=== PATIENT | male | born 1950 | race Caucasian/White ===

== ENCOUNTER 2018-03-05 06:00 | Day surgery (SDC) | payer OTHER ==
[2018-02-17 12:00] VITALS: BMI 33.5
[2018-03-05] MEDS ORDERED: PROPOFOL 20 ML ONE (07:13)
[2018-03-05] MEDS ORDERED: fentaNYL CITRATE 250 MCG/5 ML VIAL ONE (07:13)
[2018-03-05] MEDS ORDERED: DEXAMETHASONE SOD PHOSPHATE 4 MG/1 ML VIAL ONE (07:14)
[2018-03-05] MEDS ORDERED: MIDAZOLAM HCL 2 MG/2 ML SINGLE DOSE VIAL ONE (07:14)
[2018-03-05] MEDS ORDERED: ONDANSETRON 4 MG/2 ML VIAL ONE (07:14)
[2018-03-05] MEDS ORDERED: SUCCINYLCHOLINE CHLORIDE 200 MG/10 ML VIAL ONE (07:14)
[2018-03-05] MEDS ORDERED: LIDOCAINE HCL/PF 2% SDV 5ML VIAL ONE (07:14)
[2018-03-05] MEDS ORDERED: ROCURONIUM BROMIDE 50 MG/5 ML VIAL ONE (07:14)
--- NOTE | 2018-03-05 07:33 | HP ---
History & Physical Update - History History: No Change - Physical Physical: No Change - Assessment Assessment: No Change - Plan Plan: No Change (mexican intrepreter # [id number])
[2018-03-05] MEDS ORDERED: ceFAZolin SODIUM 1 GM VIAL ONE (08:22)
[2018-03-05] MEDS ORDERED: METOPROLOL TARTRATE 5 MG/5 ML VIAL ONE (08:25)
[2018-03-05] MEDS ORDERED: ASPIRIN 81 MG CHEWABLE TABLETS PO ONE (08:30)
[2018-03-05] MEDS ORDERED: GLYCOPYRROLATE 0.2 MG/1 ML VIAL ONE (09:37)
[2018-03-05] MEDS ORDERED: NEOSTIGMINE METHYLSULFATE 0.5 MG/ML - 10 ML MDV ONE (09:37)
--- NOTE | 2018-03-05 10:12 | OP ---
Operative Note - Note: Operative Date: 03/05/18 Pre-Operative Diagnosis: cholelithiasis Operation: s/p laparoscopic cholecystecotmy with intraoperative cholangiogram Surgeon: Ty Herrera Inspector Balance Bridge: Maribell Small Anesthesiologist/SQUARE CUTTER: Emilia Morales Anesthesia: General Estimated Blood Loss (mls): 20 Fluid Volume Replaced (mls): 900 Operative Report Dictated: Yes
[2018-03-05] MEDS ORDERED: ONDANSETRON 4 MG/2 ML VIAL IVPUSH PRN (10:24)
[2018-03-05] MEDS ORDERED: oxyCODONE HCL 5 MG TABLET PO PRN ×2 (10:24)
[2018-03-05] MEDS ORDERED: LACTATED RINGERS SOLUTION 1,000 ML IV SCH (10:30)
--- NOTE | 2018-03-05 11:07 | OP ---
DATE OF OPERATION: 03/05/2018 SURGICAL ATTENDING: Katelyn Turner MD GAMMA FACILITIES OPERATOR: DESIREE Darby PREOPERATIVE DIAGNOSIS: Cholecystitis. POSTOPERATIVE DIAGNOSIS: Cholecystitis. ANESTHESIA: General endotracheal. PROCEDURE: Laparoscopic cholecystectomy with intraoperative cholangiogram and incarcerated umbilical hernia repair without mesh. DESCRIPTION OF PROCEDURE: The patient was taken into the operating room, placed in a supine position, endotracheally intubated, prepped and draped in the usual sterile fashion. A vertical incision was made 2 cm in length above the umbilicus carried down through subcutaneous tissues. An umbilical hernia was identified. The fascia and peritoneum were opened. The sac contents were excised and sent to Pathology. The fascia was then sutured bilaterally. A Stephani catheter was then placed into the peritoneal cavity, and the fascial sutures were placed to secure the trocar. The abdomen was insufflated with CO2 to 15 mmHg, and the laparoscope was placed showing good placement of the trocar with no intraabdominal organ damage. A midepigastric and 2 right lateral incisions were made, and 5-mm trocars were placed in these 3 locations. The gallbladder was exposed, retracted superiorly, anteriorly, and laterally. Dissection began, and the cystic duct and cystic artery were dissected from surrounding tissues. The cystic artery was doubly clipped and cut. The cystic duct was isolated. A clip was placed superiorly on the gallbladder side, and a ductotomy was made. Bile was seen to flow from the duct. A cholangiocatheter was then placed, the balloon inflated, and saline was injected without difficulty. Cholangiography was then performed with fluoroscopy. The common bile duct and the bile filled easily with no defects seen. At first, there was no retrograde flow of dye. However, on pulling back the catheter, there was flow into the common hepatic duct. The catheter was removed. Two clips were placed inferior to the ductotomy, and the cystic duct was transected. The attachments of the gallbladder to the liver were then incised with a hook with no spillage of bile or stones. The gallbladder was then placed into an EndoCatch bag and removed through the supraumbilical port. Hemostasis was achieved with electrocautery. The right upper quadrant was then irrigated and suctioned and seemed to be dry and hemostatic. The three 5-mm ports were removed under direct vision. The umbilical report was removed. The umbilical hernia fascial defect was then closed with interrupted 0 Vicryl sutures. Subcutaneous Vicryl sutures were placed, and all skin incisions were closed with Monocryl and dressed with Dermabond. The patient was then awakened, extubated, and taken to recovery in stable condition. Dr. Turner, the attending surgeon, was present throughout the entire procedure. KATELYN TURNER M.D. [id number]
--- NOTE | 2018-03-05 12:27 | SURG ---
Surgery Summer Babysitter Note Summer Babysitter: Maribell Small PA-C Date of Service: 03/05/18 Diagnosis: cholelithiasis Procedure: laparoscopic choleycystecotmy, intra-operative cholangiogram with umbilical hernia repair I was present for the entirety of the operative procedure. For further detail, please refer to operative report. Visit type - Case Type Case Type: Scheduled - Emergency Emergency Visit: No - New patient This patient is new to me today: Yes Date on this admission: 03/05/18
[2018-03-05 12:59] VITALS: PULSE 64; TEMP 98
[2018-03-05 15:34] VITALS: BP 133/69
--- NOTE | 2018-03-05 15:51 | EKG ---
Test Reason : Blood Pressure : / mmHG Vent. Rate : 070 BPM Atrial Rate : 070 BPM P-R Int : 184 ms QRS Dur : 080 ms QT Int : 402 ms P-R-T Axes : 041 010 005 degrees QTc Int : 434 ms NORMAL SINUS RHYTHM NORMAL ECG NO PREVIOUS ECGS AVAILABLE Confirmed by FRANK BRUNO, ERIC ([id number]) on 03/05/2018 3:51:12 PM Referred By: Confirmed By:ERIC MARIE MD
--- NOTE | 2018-03-09 16:56 | PATH ---
Surgical Pathology Report Patient Name: TRISH SOARES [facility]. Rec. #: [id number] /Age/Gender: 1950 (Age: 67) / M Account: [id number] Location: [facility] AMBULATORY Taken: 03/05/2018 Received: 03/05/2018 Reported: 03/09/2018 Physicians: Ty Herrera M.D. Specimen(s) Received A: UMBILICAL HERNIA SAC B: GALLBLADDER Clinical History Calculus of gallbladder without cholecystitis Final Diagnosis A. UMBILICAL HERNIA SAC, HERNIA REPAIR: FIBROMEMBRANOUS AND FIBROADIPOSE TISSUE COMPATIBLE WITH HERNIA SAC. B. GALLBLADDER, LAPAROSCOPIC CHOLECYSTECTOMY: CHRONIC CHOLECYSTITIS WITH CHOLELITHIASIS. Electronically Signed Suzanne Mitchell M.D. Gross Description A. Received in formalin labeled "umbilical hernia sac," is a 4.3 x 3.0 x 2.0 cm aggregate of dan diaz fibromembranous tissue with attached fat, consistent with portions of hernia sac. No areas of hemorrhage or necrosis are identified. Heating [employer] Cooling Systems Engineer sections are submitted in one cassette. B. Received in formalin, labeled "gallbladder," is an 8.8 x 3.0 x 2.4 cm. gallbladder with a 0.2 cm. in length portion of cystic duct attached. The outer surface is diaz green and varies from smooth to shaggy. The lumen contains green, tenacious bile as well as 2 black, irregular choleliths measuring 0.4 and 0.6 cm in greatest dimension. The mucosa is green and velvety. The wall of the gallbladder measures 0.1 cm. in thickness. Heating And Cooling Systems Engineer sections are submitted in one cassette. 03/08/2018 saudi03/08/2018
== END 2018-03-05 15:40 | disposition home or self-care (01) ==
LOC: FASU 06:00
PROVIDERS: ATTEND Surgery
PROC: 0WQF4ZZ Repair Abdominal Wall, Percutaneous Endoscopic Approach (ICD-10-PCS; 2018-03-05)
PROC: 0FT44ZZ Resection of Gallbladder, Percutaneous Endoscopic Approach (ICD-10-PCS; principal; 2018-03-05 08:00)
PROC: BF10YZZ Fluoroscopy of Bile Ducts using Other Contrast (ICD-10-PCS; 2018-03-05 08:00)
DX: K81.9 Cholecystitis, unspecified (principal); K42.0 Umbilical hernia with obstruction, without gangrene
CPT/HCPCS: 74018-TC-FY; 76000-TC-FY; 82962; 88302-TC; 88304-TC; 93005; 94760